=== PATIENT | female | born 1975 | race Caucasian/White ===

== ENCOUNTER 2023-10-21 10:14 | Inpatient (IN) ==
--- NOTE | 2023-10-19 09:06 | Anesthesiology Consultation ---
Date of Service October 19, 2023 Assessment & Plan (1) Encounter for pre-operative examination: - Infectious disease screening: Per assessment on 10/13/23: No known infectious disease contacts or current infectious disease symptoms. No noted Covid positive test result in past 90 days. - General surgery visit (10/13/23): "At this point pathophysiology of gallbladder disease was explained to the patient and her significant other.. Also explained to them the indication for surgery timing of surgery and risks of surgery and expected resolution of symptoms.. She would like to proceed with surgery to try to alleviate some of her symptoms and with this I did mention to her that I cannot guarantee that all her symptoms will resolve.. Clinical basis and her family history I feel that cholecystectomy is warranted.. The surgical p rocedure was explained to patient including possibility of having symptoms debris in the common bile duct that could account for alleviation of her slightly elevated bilirubin and alkaline phosphatase" Chart Review Chart Review: Acceptable Risk for Surgery and Patient NOT seen in Pre Admission Testing History Surgery Operation Date: 10/21/23 12:00 Proposed Procedures p Laparoscopic Cholecystectomy with Cholangiogram, Possible Open Cholecystectomy - Delano Dewey MD, FACS Height/Weight Height: 5 ft 4 in Weight: 140.614 kg Allergies Allergy/AdvReac Type Severity Reaction Status Date / Time adhesive tape Allergy Blister Verified 10/13/23 14:37 cefuroxime [From Ceftin] Allergy systemic Verified 10/13/23 14:25 urticaria Penicillins Allergy Rash Verified 10/13/23 14:25 Medications Home Medications Medication Instructions Recorded Confirmed Last Taken lisinopril 5 mg tablet 5 mg PO QAM 09/14/23 10/13/23 Unknown metoprolol succinate 100 mg 100 mg PO HS 09/14/23 10/13/23 Unknown tablet,extended release 24 hr ondansetron HCl 4 mg tablet 4 mg PO Q8H PRN Nausea 09/14/23 10/13/23 Unknown pantoprazole 40 mg tablet,delayed 40 mg PO HS 09/14/23 10/13/23 Unknown release dicyclomine 10 mg capsule 10 mg PO TID IBS #90 caps 09/24/23 10/13/23 Unknown Past Medical History Medical History (Updated 10/19/23 @ 09:18 by Tere Espinoza) Morbid obesity Biliary colic History of depression Anxiety History of palpitations 1+ years ago s/p unremarkable cardiac workup per patient Taking Metoprolol Follows with Dr. Mueller/Ronny- last visit 06/2023 History of COVID-19 02/2020, 10/2021 > no residual symptoms except altered taste and smell Severe obstructive sleep apnea CPAP Hypertension GERD (gastroesophageal reflux disease) Past Family History Family History Aunt Breast cancer Mother Diabetes Father Heart disease Other Cancer Hypertension Past Surgical History Surgical History History of anesthesia reaction Slow to wake, post-op nausea History of dilatation and curettage Hx of total hysterectomy with removal of both tubes and ovaries Status post right breast lumpectomy benign Hx of tonsillectomy Social History Smoking Status: Never smoker Do You Dip or Chew Tobacco: No Hx Alcohol Use: Yes alcohol intake frequency: holidays/special occasions only Hx Substance Use: No substance use type: does not use Testing Laboratory Results 09/04/23 WBC 5.20 H/H 12.5/37 PLATELETS 185 HGBA1C 5.2% SODIUM 142 POTASSIUM 4.0 CHLORIDE 109 CO2 22 BUN 13 CREATININE 0.55 GLUCOSE 85 Albumin 3.6 Total bilirubin 1.3 Alk phos 234 AST 50 ALT 39 Electrocardiogram Date: 06/25/23 Normal sinus rhythm at 99 bpm. Normal QRS. Cannot rule out inferior infarct, age undetermined. EKG performed by cardiology- visit done same day* Echocardiogram Date: 04/11/21 EF 55-60%. Moderate LVH. No significant valvular disease. Small pericardial effusion posterior to the heart. Stress Test Date: 02/03/22 Type: nuclear (Lexiscan) Pharmacologic stress nuclear study is normal. Normal SPECT perfusion imaging. No significant ischemia detected. No evidence of infarct. Stress ECG test results normal. Normal LV systolic function. Gated study showed the EF 70-75%. Other Testing US Abdomen Date: 09/07/23 Question mild hepatic parenchymal edema. No biliary dilatation. Borderline gallbladder wall thickness. MRI abdomen/MRCP Date: 09/15/23 Nonspecific enlarged portacaval lymph node. Otherwise, negative MRI/MRCP of the abdomen. Follow-up with CT or MRI of the abdomen in 6 months is recommended to assess for interval change of the portocaval lymph node. NM hepatobiliary EF Date: 10/04/23 1. Normal hepatobiliary study. No evidence for acute or chronic cholecystitis. 2. Normal gallbladder ejection fraction.
[~2023-10-21 10:14] MED LIST: LR 15ML/HR IV SCH
[2023-10-21] MEDS ORDERED: SUGAMMADEX SODIUM 200 MG/2 ML VIAL IV ONE (10:46)
[2023-10-21] MEDS ORDERED: ROCURONIUM BROMIDE 10 MG/ML 5 ML VIAL IV ONE (10:46)
[2023-10-21] MEDS ORDERED: ONDANSETRON INJ 2 MG/ML 2 ML VIAL ONE (10:46)
[2023-10-21] MEDS ORDERED: PROPOFOL IV EMULSION 10 MG/ML 20 ML VIAL IV ONE ×2 (10:46→13:03)
[2023-10-21] MEDS ORDERED: fentaNYL citrate PF 100 MCG/2 ML VIAL ONE ×2 (10:46→12:56)
[2023-10-21] MEDS ORDERED: SUCCINYLCHOLINE CHLORIDE 20 MG/ML 10 ML VIAL IV ONE (10:46)
[2023-10-21] MEDS ORDERED: DEXAMETHASONE SOD INJ 4 MG/ML VIAL ONE (10:46)
[2023-10-21] MEDS ORDERED: NALOXONE HCL 0.4 MG/1 ML VIAL/CARP IV PRN (11:06)
[2023-10-21] MEDS ORDERED: FLUMAZENIL 0.1 MG/1 ML 10 ML VIAL IV PRN (11:06)
[2023-10-21] MEDS ORDERED: LABETALOL HCL IV 5 MG/ML 20ML IV PRN (11:06)
[2023-10-21] MEDS ORDERED: ePHEDrine sulfate 50 MG/ML AMP IV PRN (11:06)
[2023-10-21] MEDS ORDERED: ONDANSETRON INJ 2 MG/ML 2 ML VIAL IV PRN (11:06)
[2023-10-21] MEDS ORDERED: PROMETHAZINE HCL 12.5 MG in SODIUM CHLORIDE 0.9% 50 ML IV PRN ×2 (11:06→21:22)
[2023-10-21] MEDS ORDERED: ATROPINE SULFATE 0.1 MG/ML 10ML SYR IV PRN (11:06)
--- NOTE | 2023-10-21 12:05 | History & Physical Bridge Note ---
Date of Service October 21, 2023 History & Physical Bridge Note I have examined the patient, reviewed the History & Physical and in the interval since the performance of the History & Physical I have noted the following changes of clinical significance: no changes noted Family at bedside all question answered
[2023-10-21] MEDS ORDERED: SCOPOLAMINE 1 MG TDSY TD ONE ×2 (12:08→12:14)
[2023-10-21] MEDS ORDERED: MIDAZOLAM HCL 1 MG/ML 2ML VIAL ONE (12:12)
[2023-10-21] MEDS ORDERED: LIDOCAINE 1%/EPINEPHRINE 1:100,000 20 ML VIAL ONE (12:16)
[2023-10-21] MEDS ORDERED: ceFAZolin 330 MG/ML 1 GM VIAL ONE (12:22)
[2023-10-21] MEDS ORDERED: IOVERSOL 50ml IV ONE (13:42)
[2023-10-21] MEDS ORDERED: HYDROmorphone INJ 1 MG/ML SYRINGE ONE ×2 (13:48→13:51)
--- NOTE | 2023-10-21 13:48 | Post Operative Brief Note ---
Immediate Post Op Note v1 Date of Surgery October 21, 2023 Pre & Post Diagnosis Operation Date: 10/21/23 12:00 Pre-Op Diagnosis: Biliary Colic Post-Op Diagnosis: Biliary Colic I identified the patient and participated in the time-out.: Yes Procedure Operation Date: 10/21/23 12:00 Actual Procedures p Laparoscopic Cholecystectomy with Cholangiogram(Not Applicable) - Delano Dewey MD, FACS Surgeon Delano Dewey MD, FACS Scaffold Worker 0 Estimated Blood Loss 5 Findings Consistent with Post-Op Diagnosis
[2023-10-21] MEDS: fentaNYL citrate PF 100 MCG/2 ML VIAL IV PRN ×2 (14:00→14:05)
--- NOTE | 2023-10-21 14:03 | Operative Report ---
PG Post Operative Report Pre & Post Diagnosis Operation Date: 10/21/23 12:00 Pre-Op Diagnosis: Biliary Colic Post-Op Diagnosis: Biliary Colic I identified the patient and participated in the time-out.: Yes Procedure Operation Date: 10/21/23 12:00 Actual Procedures p Laparoscopic Cholecystectomy with Cholangiogram(Not Applicable) - Delano Dewey MD, FACS Patient was brought into the operating theater supine position general endotracheal anesthesia the abdomen was prepped Scrub solution properly draped patient identified a timeout was had made a small incision approximately 3 inches above the umbilical crater since patient had a very large abdominal wall and panniculus Veress needle was introduced to its maximum CO2 insufflated to 14 to 17 mmHg then tried to move this Veress needle and placed the standard 5 mm trocar this was a long not long enough to enter the abdomen therefore we used the extra long trocars followed by the camera point of entry specter no injury identified that under direct visualization we placed a 5 mm right upper quadrant port epigastric area on direct visualization with preemptive local analgesia 0.5% Marcaine into other 5 subcostal ports in a similar fashion the patient was placed in reverse Trendelenburg position rotated to the left could identify the gallbladder that the wall was thickened there is moderate amount of adhesions to the gallbladder with the right upper quadrant trocar site was able to elevate the gallbladder then worked our way down to the neck of the gallbladder which was seen at significant amount of fatty tissue some edema finally we were able to get around the cystic duct at its takeoff from the gallbladder was clipped small opening was made distal to that #4 urethral catheter transversing abdominal wall was position which showed free flow in duodenum no obstruction cholangiocatheter was removed cystic duct was doubly clipped securely twice the artery was similar identified doubly clipped proximally once distally and divided the gallbladder was removed in antegrade fashion using electrocautery a small opening gallbladder was made with some bile extravasated but there were no stones once the gallbladder was completely freed from the liver the area From stasis appears satisfactory the gallbladder was placed in an Endopouch taken out intact through the epigastric trocar site we will open the gallbladder at the end the procedure and the typical strawberry appearance for chronic cholecystitis. Subhepatic suprahepatic area was then checked hemostasis appear satisfactory we placed the camera in the lateral right upper quadrant trocar site to visualize the umbilical opening when we first went in there were no adhesions to the umbilicus and no obvious injury down into the omentum thin individual trocar removed and direct visualization no bleeding appreciated in the last umbilical trocar wounds were closed with 4-0 Monocryl Steris applied procedure was tolerated well by the patient estimated blood loss 5 cc Addendum I spoke to the Lionel in the waiting area Surgeon Delano Dewey MD, FACS Juvenile Court Judge 0 Estimated Blood Loss 5 Findings Consistent with Post-Op Diagnosis Chronic cholecyst Specimens Gallbladder: Complications None Indications Fatty food intolerance right upper quadrant pain Description of Procedure merda I attest to the content of the Intraoperative Record and any orders documented therein. Any exceptions are noted below.
[2023-10-21] MEDS ORDERED: oxyCODONE/ACETAMINOPHEN 5mg/325mg TAB PO PRN ×2 (14:07→16:23)
--- NOTE | 2023-10-21 14:22 | Fluoroscopy Report ---
INTRAOPERATIVE RADIOGRAPH CLINICAL HISTORY: Intraoperative cholangiogram Fluoro time: 4 seconds Ka,r: 1.95 mGy FINDINGS: A single spot fluoroscopic view of the right upper quadrant is correlated with nuclear hepa tobiliary scan dated 10/04/2023. The gallbladder is surgically absent. There is smooth contrast opaci fication of the common bile duct. No intrahepatic biliary ductal dilatation is seen. No filling defec ts are seen to suggest choledocholithiasis. Contrast passes freely into the duodenum. IMPRESSION: Intraoperative cholangiogram image as above. Electronically signed by: Henry Burton M.D. 10/21/2023 2:21 PM
[2023-10-21] MEDS ORDERED: METOPROLOL TARTRATE 1 MG/ML VIAL IV STA ×3 (14:23→14:49)
--- NOTE | 2023-10-21 14:47 | History & Physical Report ---
Date of Service October 21, 2023 Assessment & Plan (1) Status post cholecystectomy: Plan: Consult general surgery for ongoing recommendations (2) Atrial fibrillation with RVR: Plan: Post operative but suspect she has had paroxysmal for sometime given her palpitations Metoprolol 5mg IV x3 improved rates from 140 -> 110 in the PACU, will start diltiazem IV drip and increase her metoprolol succinate 100mg to BID dosing TSH TTE [id number] - 2, would recommend anticoagulation when ok from a surgical perspective (3) Obstructive sleep apnea: Plan: CPAP HS and while napping / recovering from surgery (4) GERD (gastroesophageal reflux disease): Plan: Continue pantoprazole 40mg HS (5) Hypertension: Plan: Hold lisinopril to allow uptitration of rate controlling medications Plan VTE Prophylaxis - will likely start anticoagulation POD #1 once ok from surgical perspective Diet - clear liquids Disposition - admit to PCU Admission and Anticipated Discharge Date Admission Date: October 21, 2023 History of Present Illness Chief Complaint: Atrial fibrillation post elevative lap luan Primary Care Provider: DO Jen Cortes Erma is a 47 year old female post op lap luan for biliary colic who post operatively went in to atrial fibrillation with a rapid ventricular rate while in the PACU. She denies any chest pain, shortness of breath, palpitations, presyncope or syncope at this time. She is asymptomatic with the atrial fibrillation at this time. She does note a history of intermittent palpitations but with no arrhythmia as a diagnosis as never been caught on monitor by her scroll assembler. No complications with the surgery itself as discussed with Dr Dewey. Metoprolol 5mg IV x3 given in PACU without significant response. She reports taking her metoprolol succinate as normal the night prior to surgery as instructed. Allergies Allergy/AdvReac Type Severity Reaction Status Date / Time adhesive tape Allergy Blister Verified 10/21/23 10:37 cefuroxime [From Ceftin] Allergy systemic Verified 10/21/23 10:37 urticaria Penicillins Allergy Rash Verified 10/21/23 10:37 Home Medications Medication Instructions Recorded Confirmed Type lisinopril 5 mg tablet 5 mg PO QAM 09/14/23 10/21/23 History metoprolol succinate 100 mg 100 mg PO HS 09/14/23 10/21/23 History tablet,extended release 24 hr ondansetron HCl 4 mg tablet 4 mg PO Q8H PRN Nausea 09/14/23 10/21/23 History pantoprazole 40 mg tablet,delayed 40 mg PO HS 09/14/23 10/21/23 History release dicyclomine 10 mg capsule 10 mg PO TID IBS #90 caps 09/24/23 10/21/23 Rx Past Med/Surg History Medical History (Updated 10/21/23 @ 14:52 by Alejandro Brink MD) Morbid obesity Biliary colic History of depression Anxiety History of palpitations 1+ years ago s/p unremarkable cardiac workup per patient Taking Metoprolol Follows with Dr. Mueller/Ronny- last visit 06/2023 History of COVID-19 02/2020, 10/2021 > no residual symptoms except altered taste and smell Severe obstructive sleep apnea CPAP Hypertension GERD (gastroesophageal reflux disease) Surgical History (Updated 10/21/23 @ 14:53 by Alejandro Brink MD) History of anesthesia reaction Slow to wake, post-op nausea History of dilatation and curettage Hx of total hysterectomy with removal of both tubes and ovaries Status post right breast lumpectomy benign Hx of tonsillectomy Family History Aunt Breast cancer Mother Diabetes Father Heart disease Other Cancer Hypertension Social History Smoking Status: Never smoker Second Hand Exposure: Yes (hx); Do You Dip or Chew Tobacco: No; Tobacco Cessation Education Requested by Patient: No Hx Alcohol Use: Yes Hx Substance Use: No Preferred Language: Bruneian Communication Ability: Effective Post Tensioning Ironworker Helper Required: No Beliefs That Will Affect Care: None marital status: Current Living Situation: Spouse and Family current occupational status: employed 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 How many Children do You have: 1 Other Information That Helps Us Care for You: No Feels Safe at Home: Yes Safety Concerns: Feels Safe At This Time Diet: regular during the past year weight has: decreased > 10 lbs Assistive Devices: CPAP and Glasses Review of Systems Review of Systems: All systems reviewed & are unremarkable except as noted in HPI & below Physical Exam Constitutional: WD/WN, vitals as above ENMT: Mouth: + dry oral mucous membranes Respiratory: normal respiratory effort, lungs clear to auscultation Cardiovascular: Rate/Rhythm: + tachycardic and + irregularly irregular Heart Sounds: no murmur Extremities: normal capillary refill and + pedal edema (1+ b/l equal); no calf tenderness Gastrointestinal (Abdomen): Inspection/Auscultation: abdomen normal to inspection; abdomen not distended Percussion/Palpation: + abdomen tender (generalized (post surgery)) and abdomen soft Skin: no rashes, warm and dry Neurologic: moves all extremities and awake; not confused Psychiatric: A+Ox3, euthymic affect Genitourinary: no CVA tenderness Results & Data Results & Data Vital Signs (Past 12 Hours) Vital Signs Temp Pulse Pulse Pulse Resp BP BP 10/21/23 14:30 138 H 28 H 164/86 H 10/21/23 14:30 132 H 164/86 H 10/21/23 14:20 148 H 24 175/81 H 10/21/23 14:10 160 H 26 H 169/111 H 10/21/23 13:58 37.3 C 135 H 28 H 177/105 H 10/21/23 10:50 10/21/23 10:40 36.9 C 92 H 96 H 161/84 H Pulse Ox O2 Del Method O2 Flow Rate 10/21/23 14:30 100 Oxymask 4 10/21/23 14:30 10/21/23 14:20 100 Oxymask 6 10/21/23 14:10 100 Oxymask 6 10/21/23 13:58 100 Oxymask 8 10/21/23 10:50 Room Air 10/21/23 10:40 96 Room Air Diagnostic Findings XR chest 1V portable HISTORY: 47 years-old Female post operative a. fib acute chest pain with atrial fibrillation COMPARISON: None TECHNIQUE: AP view of the chest FINDINGS: Cardiac silhouette is enlarged. No pneumothorax, pleural effusion or overt pulmonary edema. Mild bibasilar atelectasis. Bones appear grossly intact. IMPRESSION: Cardiomegaly without acute process. ECG Rate (beats per minute): 154 Rhythm: atrial fibrillation Findings: + nonspecific-ST abn Comparison ECG Date: no prior available Code Status & VTE Plan Code Status Full VTE Prophylaxis Plan VTE Prophylaxis will be ordered: Yes PG Care Time/CCT Total # of Minutes Spent Total Time Spent with Patient: Total time spent is greater than 50% in coordination of care (as documented) at patient's floor/unit and/or counseling patient: Coding Level of Care Code 78018 INT INP/OBS CARE MIN Diagnoses Status post cholecystectomy Z90.49 Atrial fibrillation with RVR I48.91 Obstructive sleep apnea G47.33 GERD (gastroesophageal reflux disease) K21.9 Hypertension I10
[2023-10-21] MEDS ORDERED: STAT IV Infusion **Titration per Protocol STA (14:50)
[2023-10-21] MEDS ORDERED: dilTIAZem HCl 5 MG/ML 5 ML VIAL IV STA (14:50)
[2023-10-21] MEDS ORDERED: dilTIAZem HCL 125 MG in DEXTROSE 5% 100 ML IV SCH (15:00)
--- NOTE | 2023-10-21 15:03 | XRay Report ---
XR chest 1V portable HISTORY: 47 years-old Female post operative a. fib acute chest pain with atrial fibrillation COMPARISON: None TECHNIQUE: AP view of the chest FINDINGS: Cardiac silhouette is enlarged. No pneumothorax, pleural effusion or overt pulmonary edema. Mild biba silar atelectasis. Bones appear grossly intact. IMPRESSION: Cardiomegaly without acute process. ACT 112: Negative or not required by law. The above report was generated using voice recognition software. It may contain grammatical, syntax o r spelling errors. Electronically signed by: Paxton Joseph M.D. 10/21/2023 3:02 PM
[2023-10-21] MEDS ORDERED: DILTIAZEM HCL IV ONE (15:15)
--- NOTE | 2023-10-21 15:18 | Anesthesiology Progress Note ---
Date of Service October 21, 2023 Anesthesia Post Procedure Vital Signs Vital Signs: Temp Pulse Pulse Pulse Resp BP BP 10/21/23 14:50 113 H 156/78 H 10/21/23 14:50 113 H 28 H 156/78 H 10/21/23 14:40 116 H 168/102 H 10/21/23 14:40 116 H 20 168/102 H 10/21/23 14:30 138 H 28 H 164/86 H 10/21/23 14:30 132 H 164/86 H 10/21/23 14:20 148 H 24 175/81 H 10/21/23 14:10 160 H 26 H 169/111 H 10/21/23 13:58 37.3 C 135 H 28 H 177/105 H 10/21/23 10:50 10/21/23 10:40 36.9 C 92 H 96 H 161/84 H Pulse Ox O2 Del Method O2 Flow Rate 10/21/23 14:50 10/21/23 14:50 98 Nasal Cannula 2 10/21/23 14:40 10/21/23 14:40 94 Room Air 10/21/23 14:30 100 Oxymask 4 10/21/23 14:30 10/21/23 14:20 100 Oxymask 6 10/21/23 14:10 100 Oxymask 6 10/21/23 13:58 100 Oxymask 8 10/21/23 10:50 Room Air 10/21/23 10:40 96 Room Air Pain Intensity Abdomen: Pain Intensity: 4 Transfer of Care Handoff Completed per policy Notes Mental Status: alert / awake / arousable and participated in evaluation Patient Amnestic to Procedure: Yes Nausea / Vomiting: adequately controlled Pain: adequately controlled Airway Patency, RR, SpO2: stable & adequate BP & HR: see Notes below Hydration State: stable & adequate Anesthetic Complications: no major complications apparent Notes: Patient brought to nPACU @ 1400 and was noted to have spontaneously converted to A Fib w/ RVR in 150's. EKG ordered. Dr Dewey made aware. [facility] Hospitalist consulted and arrived in PACU approx. 1425. Case was discussed w/ him. Apparently , patient see's a home energy rater in [place] for BP and palpitations.Patient is on metoprolol at home. We have no cardiology records regarding her "palpitations". I believe based on her body habitus,morbid obesity, Hx/o JAVON on CPAP , and Hx/O palpitations , she may have had episodes of A Fib and/ or supraventricular tachydysrhythmias.Pt is otherwise stable, has been admitted and will be discharged to telemetry.
[2023-10-21 15:46] LABS: Alanine Aminotransferase 37 U/L (7-52); Albumin Globulin Ratio 1.1 (0.9-2); Albumin Level 3.6 gm/dl (3.4-5.0); Alkaline Phosphatase 222 U/L (34-104); Anion Gap 9 (3-11); Aspartate Aminotransferase 64 U/L (13-39); BUN Creatinine Ratio 35.3 (10-20); Bilirubin,Total 2.9 mg/dl (0.2-1.0); Blood Urea Nitrogen 12 mg/dl (6-23); Calcium 8.9 mg/dl (8.6-10.3); Carbon Dioxide 24 mmol/L (21-32); Chloride 106 mmol/L (98-107); Creatinine Clr Calc Pharmacy 289.5 ml/min; Est GFR (African American) > 150.0 ml/min; Est GFR (Non-African American) 131.8 ml/min; Globulin 3.2 gm/dl (2.5-4.0); Glucose 123 mg/dl (70-99(Fasting)); Magnesium 1.7 mg/dl (1.7-2.4); Potassium 3.5 mmol/L (3.5-5.1); Sodium 139 mmol/L (136-145); Total Protein 6.8 gm/dl (6.0-8.3)
[2023-10-21 15:47] LABS: Basophils # (auto) 0.01 K/uL (0.00-0.20); Basophils % (auto) 0.1 %; Eosinophils # (auto) 0.02 K/uL (0.00-0.50); Eosinophils % (auto) 0.3 %; Hematocrit (blood only) 36.2 % (37.0-47.0); Hemoglobin 11.8 g/dl (12.0-16.0); Immature Granulocytes # (auto) 0.02 K/uL (0.01-0.20); Immature Granulocytes % (auto) 0.3 %; Lymphocytes # (auto) 0.77 K/uL (1.20-3.40); Lymphocytes % (auto) 10.7 %; Mean Corpuscular Hemoglobin 26.6 pg (25.0-34.0); Mean Corpuscular Hgb Conc 32.6 g/dL (32.0-36.0); Mean Corpuscular Volume 81.7 fL (80.0-100.0); Monocytes # (auto) 0.11 K/uL (0.11-0.59); Monocytes % (auto) 1.5 %; Neutrophils # (auto) 6.29 K/uL (1.40-6.50); Neutrophils % (auto) 87.1 %; Platelet Count 171 K/uL (130-400); RDW Standard Deviation 45.1 fL (36.4-46.3); Red Blood Count 4.43 M/uL (4.20-5.40); White Blood Count 7.22 K/ul (4.8-10.8)
[2023-10-21 15:59] LABS: INR 1.2 (0.9-1.1); Partial Thromboplastin Time 29.6 Seconds (21.0-31.0); Prothrombin Time 12.7 Seconds (9.0-12.0)
[2023-10-21 16:10] LABS: Thyroid Stimulating Hormone < 0.010 uIu/ml (0.300-4.500)
[2023-10-21] MEDS ORDERED: POTASSIUM CHLORIDE CRTAB 20 MEQ TABCR PO STA (16:26)
[2023-10-21] MEDS: MAGNESIUM SULFATE / D5W 1 GM/100 ML BAG IV SCH ×2 (17:16→19:12)
[2023-10-21] MEDS: ONDANSETRON INJ 2 MG/ML 2 ML VIAL IV PRN ×2 (19:44→23:22)
[2023-10-21] MEDS ORDERED: MoRPHine SULFATE 2 MG/ML CARP IV PRN (21:21)
[2023-10-21] MEDS: LACTATED RINGER'S 1,000 ML IV SCH (21:54)
[2023-10-21] MEDS: PANTOprazole 40 MG TAB PO SCH (23:27)
[2023-10-21] MEDS: METOPROLOL SUCC 50MG EXT REL TAB PO SCH (23:27)
[2023-10-21] MEDS: propylthiouraciL 50 MG TAB PO SCH (23:27)
[2023-10-21] MEDS ORDERED: Nursing to Pharmacy Communication SCH (23:45)
[2023-10-22] MEDS: MoRPHine SULFATE 4 MG/ML 1 ML CARP\\VIAL IV PRN ×3 (05:48→20:11)
[2023-10-22] MEDS: ONDANSETRON INJ 2 MG/ML 2 ML VIAL IV PRN ×3 (05:48→20:11)
[2023-10-22] MEDS: LACTATED RINGER'S 1,000 ML IV SCH (05:54)
[2023-10-22 08:04] LABS: Alanine Aminotransferase 32 U/L (7-52); Albumin Globulin Ratio 1.3 (0.9-2); Albumin Level 3.4 gm/dl (3.4-5.0); Alkaline Phosphatase 191 U/L (34-104); Anion Gap 9 (3-11); Aspartate Aminotransferase 55 U/L (13-39); BUN Creatinine Ratio 46.9 (10-20); Bilirubin,Total 2.5 mg/dl (0.2-1.0); Blood Urea Nitrogen 15 mg/dl (6-23); Calcium 9.1 mg/dl (8.6-10.3); Carbon Dioxide 22 mmol/L (21-32); Chloride 105 mmol/L (98-107); Creatinine Clr Calc Pharmacy 309.4 ml/min; Est GFR (African American) > 150.0 ml/min; Est GFR (Non-African American) 134.4 ml/min; Globulin 2.7 gm/dl (2.5-4.0); Glucose 116 mg/dl (70-99(Fasting)); Potassium 4.6 mmol/L (3.5-5.1); Sodium 136 mmol/L (136-145); Total Protein 6.1 gm/dl (6.0-8.3)
[2023-10-22 08:31] LABS: Hematocrit (blood only) 33.2 % (37.0-47.0); Immature Granulocytes # (auto) 0.02 K/uL (0.01-0.20); Immature Granulocytes % (auto) 0.3 %; Lymphocytes # (auto) 1.02 K/uL (1.20-3.40); Lymphocytes % (auto) 16.5 %; Mean Corpuscular Hemoglobin 26.6 pg (25.0-34.0); Mean Corpuscular Hgb Conc 33.1 g/dL (32.0-36.0); Mean Corpuscular Volume 80.2 fL (80.0-100.0); Monocytes % (auto) 6.5 %; Neutrophils # (auto) 4.73 K/uL (1.40-6.50); Neutrophils % (auto) 76.7 %; Platelet Count 167 K/uL (130-400); RDW Coefficient of Variation 15.2 % (11.5-14.5); Red Blood Count 4.14 M/uL (4.20-5.40); White Blood Count 6.17 K/ul (4.8-10.8)
[2023-10-22] MEDS: propylthiouraciL 50 MG TAB PO SCH ×2 (08:56→15:57)
[2023-10-22] MEDS: METOPROLOL SUCC 50MG EXT REL TAB PO SCH ×2 (08:57→20:11)
--- NOTE | 2023-10-22 10:18 | Surgery Consultation ---
Date of Consultation October 22, 2023 Assessment & Plan (1) Status post cholecystectomy: At this point we will start her on a diet From my point of view the patient can be discharged when okay with the medical service will see her back in the office next week either Wednesday or Wednesday Instruction had been given to her postop regarding activity diet and meds The elevated liver function test as mentioned above most likely related to the trauma the cholecystectomy rather than having any relation to any common bile duct issues History of Present Illness Reason for Consultation: Postop laparoscopic cholecystectomy intraoperative cholangiogram Attending Physician: Malik Crowe History of Present Illness Onset of atrial fibrillation The patient undergone a laparoscopic cholecystectomy intraoperative cholangiogram (no filling defect in the common bile duct) was admitted postop because of onset of atrial fibrillation and the medical service was coming off to put her under their service The patient denies any nausea this morning he is actually hungry although she was kept n.p.o. since yesterday since she had a bit of nausea Laboratory yesterday also show slight elevation liver function test (the cholangiogram was completely normal) I suspect this was related just to the trauma from the cholecystectomy Allergies Allergy/AdvReac Type Severity Reaction Status Date / Time adhesive tape Allergy Blister Verified 10/21/23 10:37 cefuroxime [From Ceftin] Allergy systemic Verified 10/21/23 10:37 urticaria Penicillins Allergy Rash Verified 10/21/23 10:37 Home Medications Medication Instructions Recorded Confirmed Type lisinopril 5 mg tablet 5 mg PO QAM 09/14/23 10/21/23 History metoprolol succinate 100 mg 100 mg PO HS 09/14/23 10/21/23 History tablet,extended release 24 hr ondansetron HCl 4 mg tablet 4 mg PO Q8H PRN Nausea 09/14/23 10/21/23 History pantoprazole 40 mg tablet,delayed 40 mg PO HS 09/14/23 10/21/23 History release dicyclomine 10 mg capsule 10 mg PO TID IBS #90 caps 09/24/23 10/21/23 Rx Patient History Medical History Morbid obesity Biliary colic History of depression Anxiety History of palpitations 1+ years ago s/p unremarkable cardiac workup per patient Taking Metoprolol Follows with Dr. Mueller/Ronny- last visit 06/2023 History of COVID-19 02/2020, 10/2021 > no residual symptoms except altered taste and smell Severe obstructive sleep apnea CPAP Hypertension GERD (gastroesophageal reflux disease) Surgical History History of anesthesia reaction Slow to wake, post-op nausea History of dilatation and curettage Hx of total hysterectomy with removal of both tubes and ovaries Status post right breast lumpectomy benign Hx of tonsillectomy Family History Aunt Breast cancer Mother Diabetes Father Heart disease Other Cancer Hypertension Social History Smoking Status: Never smoker Second Hand Exposure: Yes (hx); Do You Dip or Chew Tobacco: No; Tobacco Cessation Education Requested by Patient: No Hx Alcohol Use: Yes Hx Substance Use: No Preferred Language: Burmese Communication Ability: Effective Oil Burner Mechanic Required: No Beliefs That Will Affect Care: None marital status: Current Living Situation: Spouse and Family current occupational status: employed 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 How many Children do You have: 1 Other Information That Helps Us Care for You: No Feels Safe at Home: Yes Safety Concerns: Feels Safe At This Time Diet: regular during the past year weight has: decreased > 10 lbs Assistive Devices: CPAP and Glasses Physical Exam Physical Exam: Alert coherent sitting at side of bed without any discomfort Significant other at bedside We asked the patient to get back in bed which she did without any difficulty The sclera is nonicteric Abdomen is completely benign trocar sites of healing well no ecchymosis or redness No pedal edema Results & Data Vital Signs (Past 12 Hours) Vital Signs Temp Pulse Pulse Resp BP Pulse Ox O2 Del Method 10/22/23 07:56 36.6 C 87 18 126/80 92 Room Air 10/22/23 07:22 82 10/22/23 02:38 36.9 C 92 H 20 147/84 H 96 Room Air 10/21/23 23:27 105 H 139/83 10/21/23 22:40 88 PG Care Time/CCT Total # of Minutes Spent Total Time Spent with Patient: Total time spent is greater than 50% in coordination of care (as documented) at patient's floor/unit and/or counseling patient: Prolonged Care Time 30-minute Coding Level of Care Code 11581 IN/OBS CONSULT LVL 2,35M Diagnoses Status post cholecystectomy Z90.49
--- NOTE | 2023-10-22 17:27 | Electrocardiogram Report ---
Test Reason : Blood Pressure : / mmHG Vent. Rate : 154 BPM Atrial Rate : 156 BPM P-R Int : 000 ms QRS Dur : 078 ms QT Int : 290 ms P-R-T Axes : 000 014 245 degrees QTc Int : 464 ms Atrial fibrillation with rapid ventricular response Abnormal ECG No previous ECGs available Confirmed by Ino Shay ([id number]) on 10/22/2023 5:27:10 PM Referred By: Delano Dewey Confirmed By:Gurmeet Shay
--- NOTE | 2023-10-22 17:35 | Electrocardiogram Report ---
Test Reason : Blood Pressure : / mmHG Vent. Rate : 083 BPM Atrial Rate : 083 BPM P-R Int : 144 ms QRS Dur : 076 ms QT Int : 432 ms P-R-T Axes : 053 014 044 degrees QTc Int : 507 ms Normal sinus rhythm Low voltage QRS Nonspecific T wave abnormality Abnormal ECG When compared with ECG of 21-OCT-2023 14:05, (unconfirmed) Sinus rhythm has replaced Atrial fibrillation Vent. rate has decreased BY 71 BPM T wave inversion no longer evident in Inferior leads Nonspecific T wave abnormality, worse in Anterolateral leads Confirmed by Ino Shay ([id number]) on 10/22/2023 5:35:51 PM Referred By: Delano Dewey Confirmed By:Gurmeet Shay
--- NOTE | 2023-10-22 18:45 | XCELERA ---
[id number]
[2023-10-22] MEDS: PANTOprazole 40 MG TAB PO SCH (20:11)
--- NOTE | 2023-10-22 22:52 | Hospitalist Progress Note ---
Date of Service October 22, 2023 Assessment & Plan (1) Status post cholecystectomy: Plan: Consult general surgery for ongoing recommendations From surgical standpoint patient can be discharged. However due to hyperthyroidism and recent a fib, patient will be staying the night. (2) Atrial fibrillation with RVR: Plan: Post operative but suspect she has had paroxysmal for sometime given her palpitations Metoprolol 5mg IV x3 improved rates from 140 -> 110 in the PACU, will start diltiazem IV drip and increase her metoprolol succinate 100mg to BID dosing TSH TTE [id number] - 2, would recommend anticoagulation when ok from a surgical perspective (3) Obstructive sleep apnea: Plan: CPAP HS and while napping / recovering from surgery (4) GERD (gastroesophageal reflux disease): Plan: Continue pantoprazole 40mg HS (5) Hypertension: Plan: Hold lisinopril to allow uptitration of rate controlling medications (6) Hyperthyroidism: Plan: TSH undetectable and free T4 5.4. Discussed with Dr Vasquez and not suspected to be all from operation/anesthesia. Suspected underlying hyperthyroidism. Recommended starting PTU 150mg PO q8h and repeat TSH in 48 hours as effects of operation likely to have worn off at that time and effects of PTU unlikely to have had significant effect. She scores highly for possible thyroid storm with 60 points although this is significantly complicated by the fact she just had surgery for her gallbladder and nausea and abdominal likely due to being post operative. WIll recheck blood work on 10/23 LFTs increased - suspect due to lap luan, N&V - will change back from clear liquids to NPO overnight and place on IV fluids. Add Phenergan second line for nausea. Plan will discuss with Endocrinology tomorrow regarding discharge. Admission and Anticipated Discharge Date Admission Date: October 21, 2023 Subjective Patient reports no new symptoms. Review of Systems Review of Systems: All systems reviewed & are unremarkable except as noted in HPI & below Physical Exam Physical Exam: Constitutional: WD/WN, vitals as above Skin: no rashes, warm and dry Neurologic: moves all extremities and awake; not confused Psychiatric: A+Ox3, euthymic affect Results & Data Results & Data Vital Signs (Past 12 Hours) Vital Signs Temp Pulse Pulse Resp BP Pulse Ox O2 Del Method 10/22/23 22:46 36.8 C 76 18 140/71 95 Room Air 10/22/23 20:01 Room Air 10/22/23 19:17 36.4 C L 77 18 131/73 95 Room Air 10/22/23 15:15 36.8 C 80 20 122/75 95 Room Air 10/22/23 15:12 79 10/22/23 12:00 36.6 C 80 19 132/68 95 Room Air PG Care Time/CCT Total # of Minutes Spent Total Time Spent with Patient: Total time spent is greater than 50% in coordination of care (as documented) at patient's floor/unit and/or counseling patient: Coding Level of Care Code 76030 SUB INP/OBS CARE 2/35MIN Diagnoses Status post cholecystectomy Z90.49 Atrial fibrillation with RVR I48.91 Obstructive sleep apnea G47.33 GERD (gastroesophageal reflux disease) K21.9 Hypertension I10 Hyperthyroidism E05.90
[2023-10-23] MEDS: propylthiouraciL 50 MG TAB PO SCH ×2 (01:00→08:10)
[2023-10-23 07:22] LABS: Hematocrit (blood only) 33.6 % (37.0-47.0); Hemoglobin 10.9 g/dl (12.0-16.0); Mean Corpuscular Hemoglobin 26.6 pg (25.0-34.0); Mean Corpuscular Hgb Conc 32.4 g/dL (32.0-36.0); Mean Platelet Volume 12.4 fL (9.4-12.4); Platelet Count 161 K/uL (130-400); RDW Coefficient of Variation 14.9 % (11.5-14.5); RDW Standard Deviation 44.4 fL (36.4-46.3); White Blood Count 5.84 K/ul (4.8-10.8)
--- NOTE | 2023-10-23 07:44 | Surgery Progress Note ---
Date of Service October 23, 2023 Assessment & Plan (1) Status post cholecystectomy: Plan: Patient can be discharged at the discretion of the medical service She instructed to follow-up with our office on Wednesday or Wednesday of next week She may shower no bathing no driving for 1 week and no lifting anything over 10 pounds Admission and Anticipated Discharge Date Admission Date: October 21, 2023 Subjective Overall feels well denies any abdominal discomfort or ongoing nausea or any pain Physical Exam Physical Exam: Alert coherent sitting up in side of bed without any distress Sclera nonicteric Trocar sites are healing well the abdomen is benign Results & Data Vital Signs (Past 12 Hours) Vital Signs Temp Pulse Pulse Resp BP Pulse Ox O2 Del Method 10/23/23 07:37 36.5 C 75 18 131/64 98 Room Air 10/23/23 03:40 36.4 C L 67 18 127/80 93 10/22/23 22:46 36.8 C 76 18 140/71 95 Room Air 10/22/23 22:10 78 10/22/23 20:01 Room Air
[2023-10-23 07:52] LABS: Anion Gap 9 (3-11); BUN Creatinine Ratio 31.1 (10-20); Blood Urea Nitrogen 14 mg/dl (6-23); Calcium 9.1 mg/dl (8.6-10.3); Carbon Dioxide 24 mmol/L (21-32); Chloride 104 mmol/L (98-107); Creatinine Clr Calc Pharmacy 220.8 ml/min; Est GFR (African American) 139.3 ml/min; Est GFR (Non-African American) 120.2 ml/min; Glucose 89 mg/dl (70-99(Fasting)); Potassium 4.3 mmol/L (3.5-5.1); Sodium 137 mmol/L (136-145)
[2023-10-23 08:08] LABS: Thyroid Stimulating Hormone < 0.010 uIu/ml (0.300-4.500)
[2023-10-23] MEDS: METOPROLOL SUCC 50MG EXT REL TAB PO SCH (08:10)
[2023-10-23 08:42] LABS: T4 Free Thyroxine 2.65 ng/dl (0.61-1.60)
--- NOTE | 2023-10-23 10:27 | Discharge Summary ---
Date of Service October 23, 2023 Admission HPI Per Admitting Provider Jen Ritchie is a 47 year old female post op lap luan for biliary colic who post operatively went in to atrial fibrillation with a rapid ventricular rate while in the PACU. She denies any chest pain, shortness of breath, palpitations, presyncope or syncope at this time. She is asymptomatic with the atrial fibrillation at this time. 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 No complications with the surgery itself as discussed with Dr Dewey. Metoprolol 5mg IV x3 given in PACU without significant response. She reports taking her metoprolol succinate as normal the night prior to surgery as instructed. Principal Diagnosis hyperthyroidism Discharge Exam Constitutional: WD/WN, vitals as above Skin: no rashes, warm and dry Neurologic: moves all extremities and awake; not confused Psychiatric: A+Ox3, euthymic affect Discharge Data Allergies Allergy/AdvReac Type Severity Reaction Status Date / Time adhesive tape Allergy Blister Verified 10/21/23 10:37 cefuroxime [From Ceftin] Allergy systemic Verified 10/21/23 10:37 urticaria Penicillins Allergy Rash Verified 10/21/23 10:37 Consultations 10/21/23 16:45 Consult General Surgery Routine Procedures Performed Operation Date: 10/21/23 12:00 Actual Procedures p Laparoscopic Cholecystectomy with Cholangiogram(Not Applicable) - Delano Dewey MD, FACS Ordered Studies 10/21/23 [place] cholangiogram OR Routine Hospital Course (1) Status post cholecystectomy: Consult general surgery for ongoing recommendations From surgical standpoint patient can be discharged. (2) Atrial fibrillation with RVR: Post operative but suspect she has had paroxysmal for sometime given her palpitations Metoprolol 5mg IV x3 improved rates from 140 -> 110 in the PACU, will start diltiazem IV drip and increase her metoprolol succinate 100mg to BID dosing TSH TTE [id number] - 2, D/W cardiology: likely secondary to hyperthyroidism. No indication to start anticoaguation. (3) Obstructive sleep apnea: CPAP HS and while napping / recovering from surgery (4) GERD (gastroesophageal reflux disease): Continue pantoprazole 40mg HS (5) Hypertension: Hold lisinopril to allow uptitration of rate controlling medications (6) Hyperthyroidism: TSH undetectable and free T4 5.4. Discussed with Dr Vasquez and not suspected to be all from operation/anesthesia. Suspected underlying hyperthyroidism. Recommended starting PTU 150mg PO q8h and repeat TSH in 48 hours as effects of operation likely to have worn off at that time and effects of PTU unlikely to have had significant effect. She scores highly for possible thyroid storm with 60 points although this is significantly complicated by the fact she just had surgery for her gallbladder and nausea and abdominal likely due to being post operative. TSH remains low, but free T4 improved: 2.65 Free T3: 3.32 will discharge on methimazole and will followup with Dr. Vasquez in 3 weeks. LFTs increased - suspect due to lap luan, N&V -improved Total Time Total Time Spent Total Time Spent (In Minutes): 32 Discharge Plan Discharge Items Patient Disposition: Home - Self-Care Reason For Visit: Biliary Colic Discharge Diagnosis: Laparoscopic Cholecystectomy with Intraoperative Cholangiogram Activity: As commented below Lifting: No more than 10 pounds Lifting Comment: For 3 to 4 weeks Bathing Comment: you can shower. Exercise/Sports: Wait until after follow-up appointment Non-emergency contact: Surgeon Call non-emergency contact if: you have any medication questions, your symptoms worsen, your pain is unusual for you, your temperature is above 101, your wound has increased redness, your wound has increased drainage and your wound pain has increased Follow-up/Referrals: Sergio Vasquez MD [Physician] - (Follow up in 3 weeks) Delano Dewey MD, FACS [Surgeon] - (Make appointment for Wednesday or Friday 10/26 or 10/[address] Dewey ) Skinny Granados DO [Primary Care Provider] - Diet: Regular Addtl Attending Provider Instructions: You will have small white bandages on that are over your incision. You may shower with these on. They will tend to fall off on their own in a 7-10 days. Endocrinology will followup with you within this month. Pending Studies at Discharge: Yes Studies:: surgical pathology Stand-Alone Forms: My [facility] [employer] Medications and DC Order Prescriptions: New methimazole 10 mg tablet 15 mg PO BID 30 Days Qty: 90 0RF Continued lisinopril 5 mg tablet 5 mg PO QAM metoprolol succinate 100 mg tablet extended release 24 hr 100 mg PO HS ondansetron HCl 4 mg tablet 4 mg PO Q8H PRN (Reason: Nausea) pantoprazole 40 mg tablet,delayed release (DR/EC) 40 mg PO HS dicyclomine 10 mg capsule 10 mg PO TID Qty: 90 2RF Patient Comments: has not started yet Discharge Orders: Discharge Order (Routine); Ordered 10/23/23 Ordered By: Malik Crowe Admission Data Admit Date/Time: 10/21/23 14:35 Attending Provider: Malik Crowe Admit Provider: Aljeandro Brink Primary Care Provider: Skinny Granados Other Providers: Delano Dewey Other Interventions: Discharge Summary Assessment (RN) Last Done: 10/23/23 10:07 Coding Level of Care Code 42154 INP/OBS DISCH >30 MIN Diagnoses Status post cholecystectomy Z90.49 Atrial fibrillation with RVR I48.91 Obstructive sleep apnea G47.33 GERD (gastroesophageal reflux disease) K21.9 Hypertension I10 Hyperthyroidism E05.90
== END 2023-10-23 11:30 | disposition home or self-care (01) | DRG 989 ==
LOC: ASU 10:14 → SUATTDRO 14:35 → 2S 14:35